=== PATIENT | female | born 1950 | race Caucasian/White ===

== ENCOUNTER → 2021-02-19 | Day surgery (SDC) | payer MEDICARE, BC ==
[~2021-02-19] VITALS: Ht 167.6 cm; Wt 61.0 kg
[~2021-02-19] MED LIST: IV RINGERS,LACTATED 1000ML 1,000 ML IV SCH
[2021-02-19 11:08] VITALS: BP 170/97
[2021-02-19 11:54] VITALS: BP 148/76
== END | disposition home or self-care (01) ==
LOC: ENDOS 10:42
PROVIDERS: ATTEND Internal Medicine Gastroenterology
DX: R13.10 Dysphagia, unspecified (principal); J02.9 Acute pharyngitis, unspecified; K29.50 Unspecified chronic gastritis without bleeding; K21.00 Gastro-esophageal reflux disease with esophagitis, without bleeding; K31.89 Other diseases of stomach and duodenum; I10 Essential (primary) hypertension; E78.00 Pure hypercholesterolemia, unspecified; E03.9 Hypothyroidism, unspecified; Z79.899 Other long term (current) drug therapy; Z98.890 Other specified postprocedural states
CPT/HCPCS: 43239; 43450; 88305; 88342